=== PATIENT | male | born 1950 ===

== ENCOUNTER 2023-11-19 05:30 | Day surgery (SDC) | payer OTHER ==
[2023-11-12 11:46] LABS: PH,URINE 6.5 (5.0-8.0); URINE APPEARANCE Clear; URINE BILIRRUBIN Negative (NEGATIVE); URINE BLOOD Negative; URINE COLOR Yellow; URINE GLUCOSE Negative (NEGATIVE); URINE LEUKOCYTE Negative; URINE NITRATE Negative; URINE PROTEIN Negative (NEGATIVE); URINE UROBILINOGEN 0.2 E.U./dl
[2023-11-12 11:48] LABS: URINE RBC 3.2 uL (0.0-20.8)
[2023-11-12 11:49] LABS: HEMATOCRIT 38.5 % (39.0-48.0); HEMOGLOBIN 13.3 g/dL (13-16.00); MEAN CELL VOLUME 99.2 fL (80.0-100.00); MEAN CORPUSCULAR HEMOGLOBIN 34.2 pg (27.00-32.0); MEAN CORPUSCULAR HGB CONC 34.5 g/dl (32.0-36.0); PLATELET COUNT 178 K/uL (150-450); RED BLOOD COUNT 3.88 M/uL (4.00-6.00); RED CELL DISTRIBUTION WIDTH 14.2 % (11.5-14.5)
[2023-11-12 12:04] LABS: INR 0.99; PARTIAL THROMBOPLASTIN TIME 29.3 SECONDS (22.0-34.0); PROTHROMBIN TIME 10.4 SECONDS (9.0-11.5)
[2023-11-12 12:19] LABS: ALBUMIN 3.8 gm/dL (3.4-5.0); BILIRUBIN TOTAL 0.44 mg/dL (0.3-1.2); CREATININE SERUM 0.97 mg/dL (0.70-1.30); GFR 75.45; GLOBULINA 3.2 G/DL (2.4-3.5); POTASSIUM 4.99 mEq/L (3.5-5.1)
[2023-11-12 12:33] LABS: URINE BACTERIA 0 uL (0.0-1933); URINE EPITHELIAL CELLS 0.2 uL (0.0-38.8); URINE WBC 0 uL (0.0-23.2)
[~2023-11-19 05:30] MED LIST: ACIDO FOLICO; CARDURA; DIOVAN160 M1; LIPITOR; NORVASC; PLAVIX75 MG
== END 2023-11-19 10:10 | disposition home or self-care (01) ==
LOC: CIR.AMB 05:30
PROVIDERS: ATTEND Surgery
DX: K40.30 Unilateral inguinal hernia, with obstruction, without gangrene, not specified as recurrent (principal); Z53.09 Procedure and treatment not carried out because of other contraindication; R56.9 Unspecified convulsions; Z88.5 Allergy status to narcotic agent

== ENCOUNTER 2023-11-26 05:10 | Day surgery (SDC) | payer OTHER ==
[~2023-11-26] VITALS: Ht 170.2 cm; Wt 68.0 kg
[2023-11-26] MEDS ORDERED: LevETIRAcetam 500 MG/5 ML VIAL IV ONE (09:30)
[2023-11-26] MEDS ORDERED: CEFAZOLIN SODIUM 1,000 MG VIAL IV ONE (10:15)
== END 2023-11-26 14:55 | disposition home or self-care (01) ==
LOC: CIR.AMB 05:10
PROVIDERS: ATTEND Surgery
DX: K40.30 Unilateral inguinal hernia, with obstruction, without gangrene, not specified as recurrent (principal); I10 Essential (primary) hypertension; Z88.4 Allergy status to anesthetic agent
CPT/HCPCS: 49507; C1781